=== PATIENT | female | born 2000 | race Two or more races ===

== ENCOUNTER → 2021-04-27 | Outpatient (CLI) | payer OTHER ==
[2021-04-27 12:00] LABS: Basophils # (A) 0.1 k/uL (0-0.2); Basophils % (A) 1 %; Eosinophils # (A) 0.2 k/uL (0-0.7); Eosinophils % (A) 2 %; HCT 43.5 % (34.0-46.0); Lymphocytes # (A) 1.4 k/uL (1.0-4.8); Lymphocytes % (A) 21 %; MCH 30.4 pg (25.0-35.0); MCHC 32.1 g/dL (31.0-37.0); MCV 94.6 fL (80.0-100.0); Mean Platelet Volume 8.5; Monocytes # (A) 0.7 k/uL (0-1.0); Monocytes % (A) 10 %; Neutrophils # (A) 4.2 k/uL (1.3-7.7); Neutrophils % (A) 63 %; Platelet Count 254 k/uL (150-450); RDW 12.6 % (11.5-15.5); WBC 6.7 k/uL (3.8-10.6)
== END | disposition home or self-care (01) ==
LOC: LABPAT 10:30
PROVIDERS: ATTEND Obstetrics & Gynecology
DX: Z01.812 Encounter for preprocedural laboratory examination (principal); B08.1 Molluscum contagiosum
CPT/HCPCS: 36415; 85025

== ENCOUNTER 2021-05-08 09:52 | Day surgery (SDC) | payer BC, OTHER ==
[2021-05-03 15:46] VITALS: BMI 22.0
--- NOTE | 2021-05-04 09:50 | HP ---
HISTORY AND PHYSICAL HISTORY OF PRESENT ILLNESS: This is a 20-year-old white female 0, who presents with a history of multiple molluscum contagiosum lesions across the perineal body, labia and buttocks. STD testing is otherwise negative. She presents today for surgical excision of these lesions. My judgment is not to perform this in the office secondary to patient's age and the number of lesions present. PAST MEDICAL HISTORY: Significant for dysfunctional uterine bleeding. PAST SURGICAL HISTORY: Negative. ALLERGIES: None known. FAMILY HISTORY: Negative. REPRODUCTIVE HISTORY: Menarche began at the age of 10 with monthly intervals. She denies any menstrual issues. SOCIAL HISTORY: Patient is the [employer] with a local chapter, she has never been a smoker, social alcohol only. REVIEW OF SYSTEMS: Is otherwise negative. EXAM: Patient is 5 foot 7.25 inches, 144 pounds, BMI 22, pulse 65, blood pressure 120/62. HEENT exam reveals no thyromegaly, no cervical lymphadenopathy, trachea midline. CHEST: Clear to auscultation in all goodson anteriorly and posteriorly. CARDIAC exam reveals regular rate and rhythm with no murmur, click, or rub. BREASTS are bilaterally symmetric to inspection with no skin dimpling, nipple discharge, axillary adenopathy, or discernible lesions or masses. ABDOMEN: Soft and nontender, active bowel sounds, no organosplenomegaly, no herniorrhaphy. GENITALIA EXAM: The external genitalia are normal for age with no discharge. Vagina is clear, no discharge or inflammatory lesions. Urethra is normal, no lesions or erythema. Cervix is nulliparous, smooth and small. Uterus is anteverted, anteflexed, smooth, small, mobile, and nontender. Adnexa are negative bilaterally. Perineal body, however, contains at least 45-50 molluscum contagiosum lesions across the perineal body, labia bilaterally, and buttocks. Anal exam is negative. SKIN is otherwise clear with no rashes or lesions. No areas of discoloration. NEUROLOGIC: The patient is intact x3 with normal mood and affect, good judgment. IMPRESSION: Multiple molluscum contagiosum lesions, here for surgical excision of same. All signs otherwise reassuring in this healthy young female. PLAN: We will proceed with excision of the molluscum contagiosum lesions in the operating room, with a bucks curette. Risk of bleeding, infection, or dyspareunia postoperatively has been discussed. Risk of pain management also reviewed. All questions answered. MMODL / IJN: [id number] /
[~2021-05-08 09:52] MED LIST: DEXAMETHASONE SOD PHOSPHATE 4 MG/ML 1 ML VIAL IV ONE; HYDROmorphone 0.5 MG/0.5 ML SYRINGE IVP PRN; LACTATED RINGERS 1,000 ML IV SCH; LIDOCAINE 1% (10MG/ML) FOR IV START INTRADERMA PRN; METOCLOPRAMIDE 5 MG/ML 2 ML VIAL IVP PRN; ONDANSETRON 4 MG/2 ML VIAL IVP ONE; Pre Op ABX Message 1 EACH MISC MISCELLANE ONE
[2021-05-08] MEDS ORDERED: LACTATED RINGERS 1,000 ML IV ONE (10:17)
[2021-05-08] MEDS ORDERED: ACETAMINOPHEN IV (For NPO) 1,000 MG/100 ML VIAL ONE (12:39)
[2021-05-08] MEDS ORDERED: LIDOCAINE 1% INJ 10MG/ML (20 ML MDV) ONE (12:39)
[2021-05-08] MEDS ORDERED: MIDAZOLAM 2 MG/2 ML VIAL ONE (12:39)
[2021-05-08] MEDS ORDERED: PROPOFOL 10 MG/ML 20 ML VIAL IV ONE (12:39)
[2021-05-08] MEDS ORDERED: KETOROLAC 15 MG/ML 1 ML VIAL ONE (12:39)
[2021-05-08] MEDS ORDERED: fentaNYL (PF) 50 MCG/ML 2 ML AMP ONE (12:39)
[2021-05-08] MEDS ORDERED: BACITRACIN ZINC 500 UNIT/GM OINT 28.4 GM TUBE TOPICAL ONE (13:11)
--- NOTE | 2021-05-08 13:29 | P.OP ---
Date of Procedure: 05/08/21 Preoperative Diagnosis: Extensive molluscum contagiosum lesions of the perineal body and bilateral buttock Postoperative Diagnosis: Same Procedure(s) Performed: Excision 45 molluscum contagiosum lesions Surgeon: Josee Alonzo Estimated Blood Loss (ml): 25 IV fluids (ml): 400 Urine output (ml): 300 Pathology: none sent Condition: stable Disposition: PACU Description of Procedure: Patient is brought to the operating suite where a anesthetic is administered. She's placed in the dorsal lithotomy position. The appropriate timeout is performed to assure proper patient and procedural identification, urine hCG negative. Perineal body is prepped and draped in usual sterile fashion. Bladder is drained for approximate 400 mL of clear yellow urine. A sharp bucks curette is used, and 17 molluscum contagiosum lesions are removed from the left buttock and perineal body, 28 removed from the right. Careful inspection reveals no additional lesions. Pressure is applied, and basic tracing applied to the skin when completed. A blue towel was folded and applied to the perineal body and upper buttock region as well. All sponge needle and instrument counts are correct. Patient is brought back to recovery room in very good condition with stable vital signs, blood pressure 98/46, pulse 60. Toradol is given prior to leaving the room. She will follow- up with me in the office in 2 weeks.
[2021-05-08 13:30] VITALS: RESP 16; TEMP 98.8
[2021-05-08 14:21] VITALS: BP 123/74; PULSE 65
== END 2021-05-08 14:50 | disposition home or self-care (01) ==
LOC: OR 09:52
PROVIDERS: ATTEND Obstetrics & Gynecology
DX: B08.1 Molluscum contagiosum (principal)
CPT/HCPCS: 11400; 81025; J2250; J2001; J3010; J0131; J1885; J2704